=== PATIENT | male | born 1985 | race Caucasian/White ===

== ENCOUNTER 2017-01-26 10:04 | Emergency (ER) | payer SELFPAY ==
[2017-01-26 10:52] VITALS: BP 143/101
--- NOTE | 2017-01-26 13:19 | UC ---
Skin Complaint HPI - HPI Summary HPI Summary: SLEPT ON MATTRESS/COT THAT HAD BEEN KEPT OUTDOORS WITH ANIMALS ONE WEEK AGO AT FATHER'S HOUSE. DEVELOPED ITCHY SPREADING RASH AND RED WHELTS ON TORSO ARMS AND LEGS - History of Current Complaint Chief Complaint: UCSkin Time Seen by Provider: 01/26/17 11:11 Stated Complaint: RASH/BITES Hx Obtained From: Patient Onset/Duration: Gradual Onset, Lasting Days, Still Present Skin Exposure Onset/Duration: Weeks Ago Onset Severity: Moderate Current Severity: Moderate Pain Intensity: 0 Pain Scale Used: 0-10 Numeric Location: Diffuse Character: Pruritus Aggravating: Nothing Alleviating: Nothing Associated Signs & Symptoms: Positive: Rash. Negative: Nausea, Vomiting, Fever , Chills, Cough, Tenderness, Red Streaks Related History: Possible Reaction to: Insect, Possible Reaction to: Environmental Exposure - Allergy/Home Medications Allergies/Adverse Reactions: Allergies Allergy/AdvReac Type Severity Reaction Status Date / Time Acetaminophen [From Tylenol] Allergy throat Verified 12/03/14 10:56 swelling Review of Systems Constitutional: Negative Skin: Rash Eyes: Negative ENT: Negative Respiratory: Negative Cardiovascular: Negative Gastrointestinal: Negative Genitourinary: Negative Motor: Negative Neurovascular: Negative Musculoskeletal: Negative Neurological: Negative Psychological: Negative All Other Systems Reviewed And Are Negative: Yes PMH/Surg Hx/FS Hx/Imm Hx Previously Healthy: Yes - Surgical History Surgical History: None - Family History Known Family History: Negative: Blood Disorder - Social History Occupation: Unemployed Lives: With Family Alcohol Use: None Substance Use Type: None Smoking Status (MU): Heavy Every Day Tobacco Smoker Household Exposure Type: Cigarettes Physical Exam Triage Information Reviewed: Yes Appearance: Well-Appearing, No Pain Distress, Well-Nourished, Obese Vital Signs: Initial Vital Signs Temp 98.3 F 01/26/17 10:43 Pulse 94 01/26/17 10:43 Resp 16 01/26/17 10:43 BP 143/101 01/26/17 10:43 Pulse Ox 92 01/26/17 10:43 Vital Signs Reviewed: Yes Eye Exam: Normal ENT Exam: Normal ENT: Positive: Normal ENT inspection, Hearing grossly normal Dental Exam: Normal Neck exam: Normal Neck: Positive: Supple, Nontender, No Lymphadenopathy Respiratory Exam: Normal Respiratory: Positive: Chest non-tender, Lungs clear, Normal breath sounds, No respiratory distress Cardiovascular Exam: Normal Cardiovascular: Positive: RRR, No Murmur, Pulses Normal Abdominal Exam: Normal Musculoskeletal Exam: Normal Neurological Exam: Normal Psychological Exam: Normal Skin: Positive: rashes Course/Dx - Differential Diagnoses - Skin Complaint Differential Diagnoses: Cellulitis, Contact Dermatitis, Impetigo, Scabies, Systemic Illness, Tick Born Illness, Tinea, Viral Exanthem, Other - BUG BITE - Diagnoses Provider Diagnoses: SCABIES/FLEAS Discharge - Discharge Plan Condition: Stable Disposition: HOME Prescriptions: Permethrin 5% CREAM* 1 applic TOPICAL SEE INSTRUCTIONS #1 tube Patient Education Materials: Scabies (ED), Bed Bugs (ED) Forms: *Work Release Referrals: No Primary Care Phys,NOPCP [Primary Care Provider] -
== END 2017-01-26 11:30 | disposition home or self-care (01) ==
LOC: UCEAST 10:04
DX: B86 Scabies (principal); T14.8 Other injury of unspecified body region; F17.210 Nicotine dependence, cigarettes, uncomplicated
CPT/HCPCS: 99212; G0463

== ENCOUNTER 2017-02-14 15:38 | Emergency (ER) | payer SELFPAY ==
[2017-02-14 16:44] VITALS: BP 135/81
--- NOTE | 2017-02-14 17:57 | UC ---
Skin Complaint HPI - HPI Summary HPI Summary: Dx with scabies a couple of weeks ago---did not complete the second half of the treatment--and has continued itching worse at night--hand, groin , legs and arms - History of Current Complaint Chief Complaint: UCSkin Time Seen by Provider: 02/14/17 17:00 Stated Complaint: ITCHING SWELLING SKIN,BUG BITES Hx Obtained From: Patient Onset/Duration: Gradual Onset, Lasting Weeks, Still Present Skin Exposure Onset/Duration: Weeks Ago Timing: Constant Onset Severity: Mild Current Severity: Moderate Location: Diffuse Character: Redness Aggravating: Nothing Alleviating: Nothing Associated Signs & Symptoms: Positive: Negative Related History: Insect Bite/Sting - Allergy/Home Medications Allergies/Adverse Reactions: Allergies Allergy/AdvReac Type Severity Reaction Status Date / Time Acetaminophen [From Tylenol] Allergy throat Verified 02/14/17 16:46 swelling Review of Systems Constitutional: Negative Skin: Rash - itchy Eyes: Negative ENT: Negative Respiratory: Negative Cardiovascular: Negative Gastrointestinal: Negative Genitourinary: Negative Motor: Negative Neurovascular: Negative Musculoskeletal: Negative Neurological: Negative Psychological: Negative All Other Systems Reviewed And Are Negative: Yes PMH/Surg Hx/FS Hx/Imm Hx Previously Healthy: Yes - Surgical History Surgical History: None - Family History Known Family History: Positive: None Negative: Blood Disorder - Social History Occupation: Unemployed Lives: With Family Alcohol Use: Rare Substance Use Type: None Smoking Status (MU): Heavy Every Day Tobacco Smoker Have You Smoked in the Last Year: Yes Household Exposure Type: Cigarettes Physical Exam Triage Information Reviewed: Yes Appearance: Well-Appearing, No Pain Distress, Well-Nourished Vital Signs: Initial Vital Signs Temp 97.7 F 02/14/17 16:41 Pulse 97 02/14/17 16:41 Resp 18 02/14/17 16:41 BP 135/81 02/14/17 16:41 Pulse Ox 96 02/14/17 16:41 Vital Signs Reviewed: Yes Eye Exam: Normal Eyes: Positive: Conjunctiva Clear ENT Exam: Normal ENT: Positive: Normal ENT inspection, Hearing grossly normal, TMs normal. Negative: Nasal congestion, Nasal drainage, Trismus, Muffled/hoarse voice Dental Exam: Normal Neck exam: Normal Neck: Positive: Supple, Nontender Respiratory Exam: Normal Respiratory: Positive: Chest non-tender, Lungs clear, Normal breath sounds, No respiratory distress, No accessory muscle use Cardiovascular Exam: Normal Cardiovascular: Positive: RRR, No Murmur, Pulses Normal, Brisk Capillary Refill Musculoskeletal Exam: Normal Musculoskeletal: Positive: Strength Intact, ROM Intact, No Edema Neurological Exam: Normal Neurological: Positive: Alert, Muscle Tone Normal Psychological Exam: Normal Skin: Positive: Other - scattered scabbed areas from itching Course/Dx - Course Course Of Treatment: elimite then steroid cream follow with pcp wash all clothing and bedding - Differential Diagnoses - Skin Complaint Differential Diagnoses: Poison Maureen, Poison [place], Scabies, Tick Born Illness, Urticaria - Diagnoses Provider Diagnoses: scabies, nicotine dependent Discharge - Discharge Plan Condition: Stable Disposition: HOME Prescriptions: Permethrin 5% CREAM* 1 applic TOPICAL SEE INSTRUCTIONS #60 gm Triamcinolone 0.1% CREAM(NF) [Kenalog Cream 0.1%(NF)] 1 applic TOPICAL BID #60 tube Patient Education Materials: Scabies (ED), Bed Bugs (ED) Referrals: [facility] [Provider Group] - If Needed
== END 2017-02-14 18:11 | disposition home or self-care (01) ==
LOC: UCEAST 15:38
DX: B86 Scabies (principal); Z88.6 Allergy status to analgesic agent; F17.210 Nicotine dependence, cigarettes, uncomplicated
CPT/HCPCS: 99212; G0463

== ENCOUNTER 2017-12-11 15:32 | Emergency (ER) | payer SELFPAY ==
[2017-12-11 17:35] LABS: ABS Basophils 0.1 10^3/ul (0-0.2); ABS Eosinophils 0.5 10^3/ul (0-0.6); ABS Lymphocytes 1.4 10^3/ul (1.0-4.8); ABS Monocytes 1.3 10^3/ul (0-0.8); ABS Neutrophils 10.2 10^3/ul (1.5-7.7); ABS Nucleated RBC 0 10^3/ul; Eosinophil % 3.7 % (0-6); Hematocrit 55 % (42-52); Hemoglobin 18.5 g/dl (14.0-18.0); Lymphocyte % 10.1 % (25-47); Mean Corpuscular HGB Conc 34 g/dl (31-36); Mean Corpuscular Hemoglobin 29 pg (27-31); Mean Corpuscular Volume 87 fL (80-94); Mean Platelet Volume 8.3 um3 (7.4-10.4); Nucleated Red Blood Cells % 0.1; Platelet Count 384 10^3/ul (150-450); Red Cell Distribution Width 15 % (10.5-15); White Blood Count 13.5 10^3/ul (3.5-10.8)
[2017-12-11 17:38] LABS: Urine Appearance Clear; Urine Blood 1+ (Negative); Urine Color Amber; Urine Ketones 1+ (Negative); Urine Protein 1+(30 mg/dL) (Negative); Urine Specific Gravity 1.026 (1.010-1.030); Urine Urobilinogen Positive (Negative)
[2017-12-11 17:51] LABS: EGFR Non-African American 103.8 (>60)
--- NOTE | 2017-12-11 17:51 | RAD ---
INDICATION: Chest pain. COMPARISON: Comparison is made with a prior study from September 06, 2012 TECHNIQUE: Dual-energy PA and lateral views of the chest were obtained. FINDINGS: The heart is within normal limits in size. Mediastinal and hilar contours appear within normal limits. The lungs are clear. No pleural effusion is present. IMPRESSION: NO EVIDENCE FOR ACTIVE CARDIOPULMONARY DISEASE.
--- NOTE | 2017-12-11 19:51 | RAD ---
INDICATION: Right flank abdominal pain. COMPARISON: There are no prior studies available for comparison. TECHNIQUE: A CT scan of the abdomen and pelvis was performed without intravenous or oral contrast. Contiguous axial sections were obtained from the lung bases through the symphysis pubis. Images were reconstructed in the coronal and sagittal planes. FINDINGS: The lung bases are clear. No pleural effusion is present. The liver is mildly enlarged and decreased in attenuation consistent with fatty infiltration. There is a coarse calcification in the anterior portion of the right hepatic lobe measuring 1.3 cm in size. No other focal abnormalities are seen on this noncontrast study. No calcified gallstones are noted. The spleen is moderately enlarged without focal abnormality. The pancreas appears to be within normal limits. 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 The kidneys are normal in size. No renal calculi or hydronephrosis is seen. No ureteral or bladder calculi are noted. No bladder wall thickening or bladder calculi are seen. The adrenal glands appear to be within normal limits. The aorta is normal in caliber without significant calcific plaque. No significant enlarged retroperitoneal lymph nodes are seen. There is a small hiatal hernia. The stomach, small and large bowel appear nondistended. The appendix is within normal limits. There are scattered diverticuli throughout the colon which are moderate in degree in the descending and sigmoid colon. There is no evidence for diverticulitis or colitis. No free intraperitoneal air or fluid is seen. No significant focal osseous abnormality is seen. IMPRESSION: 1. NO RENAL CALCULI OR HYDRONEPHROSIS . 2. MALROTATION OF THE RIGHT KIDNEY LIKELY INCIDENTAL. IF THE PATIENT'S SYMPTOMS PERSIST CONSIDER CONTRAST-ENHANCED IMAGING. 3. HEPATOSPLENOMEGALY AND HEPATIC STEATOSIS.
[2017-12-11 20:25] VITALS: BP 130/71
--- NOTE | 2017-12-11 21:14 | ED ---
Hiral Lopez Elizabeth, scribed for Hamlet Sanchez MD on 12/11/17 at 1702 . GI/ HPI - HPI Summary HPI Summary: This patient is a 32 year old M presenting to [facility] with a chief complaint of right flank pain since 4-5 day ago. The patient rates the pain 8/10 in severity. Symptoms aggravated by coughing. Symptoms alleviated by nothing. Patient reports cough with yellow-green sputum. Patient denies pedal edema or fever. Pt has a hx of smoking. - History of Current Complaint Chief Complaint: EDFlankPain Time Seen by Provider: 12/11/17 16:30 Stated Complaint: BACK PAIN WHEN COUGHING Hx Obtained From: Patient Onset/Duration: Started Days Ago - 4-5 days ago Timing: Intermittent - severe when coughing Severity: Moderate Pain Intensity: 8 Location of Pain: Flank - right flank Associated Signs and Symptoms: Positive: Flank Pain, Cough, Other: - negative pedal edema. Negative: Fever Aggravating Factor(s): Coughing Alleviating Factor(s): Nothing - Allergy/Home Medications Allergies/Adverse Reactions: Allergies Allergy/AdvReac Type Severity Reaction Status Date / Time acetaminophen Allergy Mild Swelling Verified 12/11/17 17:24 PMH/Surg Hx/FS Hx/Imm Hx Endocrine/Hematology History: Denies: Hx Diabetes, Hx Thyroid Disease Cardiovascular History: Denies: Hx Hypertension - unknown Respiratory History: Reports: Hx Asthma Denies: Hx Chronic Obstructive Pulmonary Disease (COPD) GI History: Denies: Hx Ulcer Infectious Disease History: No Infectious Disease History: Reports: Hx Tuberculosis - TREATED 10 YRS AGO Denies: Hx Clostridium Difficile, Hx Hepatitis, Hx Human Immunodeficiency Virus (HIV), Hx of Known/Suspected MRSA, Hx Shingles, Hx Known/Suspected VRE, Hx Known/Suspected VRSA, History Other Infectious Disease, Traveled Outside the [place] in Last 30 Days - Family History Known Family History: Positive: None Negative: Blood Disorder - Social History Alcohol Use: Rare Substance Use Type: Reports: Marijuana Substance Use Comment - Amount & Last Used: occ Smoking Status (MU): Heavy Every Day Tobacco Smoker Have You Smoked in the Last Year: Yes Review of Systems Negative: Fever Positive: Cough Positive: flank pain - right flank pain Negative: Edema All Other Systems Reviewed And Are Negative: Yes Physical Exam - Summary Physical Exam Summary: Appearance: The patient is well-nourished in no acute distress and in no acute pain. Skin: The skin is warm and dry and skin color reflects adequate perfusion. HEENT: The head is normocephalic and atraumatic. The pupils are equal and reactive. The conjunctivae are clear and without drainage. Nares are patent and without drainage. Mouth reveals moist mucous membranes and the throat is without erythema and exudate. The external ears are intact. The ear canals are patent and without drainage. The tympanic membranes are intact. Neck: the neck is supple with full range of motion and non-tender. There are no carotid bruits. There is no neck vein distension. Respiratory: Chest is non-tender. Lungs are clear to auscultation and breath sounds are symmetrical and equal. Cardiovascular: Heart is regular rate and rhythm. There is no murmur or rub auscultated. There is no peripheral edema and pulses are symmetrical and equal. Abdomen: The abdomen is soft and non-tender. There are normal bowel sounds heard in all four quadrants and there is no organomegaly palpated. Musculoskeletal: There is no back tenderness noted. Extremities are non-tender with full range of motion. There is good capillary refill. There is no peripheral edema or calf tenderness elicited. Neurological: Patient is alert and oriented to person, place and time. The patient has symmetrical motor strength in all four extremities. Cranial nerves are grossly intact. Deep tendon reflexes are symmetrical and equal in all four extremities. Psychiatric: The patient has an appropriate affect and does not exhibit any anxiety or depression. Triage Information Reviewed: Yes Vital Signs On Initial Exam: Initial Vitals Temp Pulse Resp BP Pulse Ox 98.6 F 83 16 119/80 95 12/11/17 15:40 12/11/17 15:40 12/11/17 15:40 12/11/17 15:40 12/11/17 15:40 Vital Signs Reviewed: Yes Diagnostics - Vital Signs Vital Signs Temp Pulse Resp BP Pulse Ox 12/11/17 15:40 98.6 F 83 16 119/80 95 - Laboratory Lab Results: Lab Results 12/11/17 12/11/17 12/11/17 Range/Units 17:26 17:27 17:27 WBC 13.5 H (3.5-10.8) 10^3/ul RBC 6.30 H (4.0-5.4) 10^6/ul Hgb 18.5 H (14.0-18.0) g/dl Hct 55 H (42-52) % MCV 87 (80-94) fL MCH 29 (27-31) pg MCHC 34 (31-36) g/dl RDW 15 (10.5-15) % Plt Count 384 (150-450) 10^3/ul MPV 8.3 (7.4-10.4) um3 Neut % (Auto) 76.0 (38-83) % Lymph % (Auto) 10.1 L (25-47) % Cedar % (Auto) 9.6 H (0-7) % Eos % (Auto) 3.7 (0-6) % Baso % (Auto) 0.6 (0-2) % Absolute Neuts (auto) 10.2 H (1.5-7.7) 10^3/ul Absolute Lymphs (auto) 1.4 (1.0-4.8) 10^3/ul Absolute Monos (auto) 1.3 H (0-0.8) 10^3/ul Absolute Eos (auto) 0.5 (0-0.6) 10^3/ul Absolute Basos (auto) 0.1 (0-0.2) 10^3/ul Absolute Nucleated RBC 0 10^3/ul Nucleated RBC % 0.1 D-Dimer, Quantitative < 200 (Less Than 230) ng/mL Sodium (139-145) mmol/L Potassium (3.5-5.0) mmol/L Chloride (101-111) mmol/L Carbon Dioxide (22-32) mmol/L Anion Gap (2-11) mmol/L BUN (6-24) mg/dL Creatinine (0.67-1.17) mg/dL Est GFR ( Amer) (>60) Est GFR (Non-Af Amer) (>60) BUN/Creatinine Ratio (8-20) Glucose (70-100) mg/dL Calcium (8.6-10.3) mg/dL Total Bilirubin (0.2-1.0) mg/dL AST (13-39) U/L ALT (7-52) U/L Alkaline Phosphatase (34-104) U/L C-Reactive Protein (< 5.00) mg/L Total Protein (6.4-8.9) g/dL Albumin (3.2-5.2) g/dL Globulin (2-4) g/dL Albumin/Globulin Ratio (1-3) Urine Color Mi Urine Appearance Clear Urine pH 6.0 (5-9) Ur Specific [place] 1.026 (1.010-1.030) Urine Protein 1+(30 mg/dl) A (Negative) Urine Ketones 1+ A (Negative) Urine Blood 1+ A (Negative) Urine Nitrate Negative (Negative) Urine Bilirubin Negative (Negative) Urine Urobilinogen Positive A (Negative) Ur Leukocyte Esterase Negative (Negative) Urine WBC (Auto) Absent (Absent) Urine RBC (Auto) 1+(3-5/hpf) A (Absent) Urine Bacteria Absent (Absent) Urine Glucose Negative (Negative) 12/11/17 Range/Units 17:27 WBC (3.5-10.8) 10^3/ul RBC (4.0-5.4) 10^6/ul Hgb (14.0-18.0) g/dl Hct (42-52) % MCV (80-94) fL MCH (27-31) pg MCHC (31-36) g/dl RDW (10.5-15) % Plt Count (150-450) 10^3/ul MPV (7.4-10.4) um3 Neut % (Auto) (38-83) % Lymph % (Auto) (25-47) % Cedar % (Auto) (0-7) % Eos % (Auto) (0-6) % Baso % (Auto) (0-2) % Absolute Neuts (auto) (1.5-7.7) 10^3/ul Absolute Lymphs (auto) (1.0-4.8) 10^3/ul Absolute Monos (auto) (0-0.8) 10^3/ul Absolute Eos (auto) (0-0.6) 10^3/ul Absolute Basos (auto) (0-0.2) 10^3/ul Absolute Nucleated RBC 10^3/ul Nucleated RBC % D-Dimer, Quantitative (Less Than 230) ng/mL Sodium 135 L (139-145) mmol/L Potassium 4.3 (3.5-5.0) mmol/L Chloride 101 (101-111) mmol/L Carbon Dioxide 26 (22-32) mmol/L Anion Gap 8 (2-11) mmol/L BUN 10 (6-24) mg/dL Creatinine 0.85 (0.67-1.17) mg/dL Est GFR ( Amer) 133.5 (>60) Est GFR (Non-Af Amer) 103.8 (>60) BUN/Creatinine Ratio 11.8 (8-20) Glucose 82 (70-100) mg/dL Calcium 9.7 (8.6-10.3) mg/dL Total Bilirubin 1.30 H (0.2-1.0) mg/dL AST 16 (13-39) U/L ALT 19 (7-52) U/L Alkaline Phosphatase 72 (34-104) U/L C-Reactive Protein 30.52 H (< 5.00) mg/L Total Protein 7.6 (6.4-8.9) g/dL Albumin 4.5 (3.2-5.2) g/dL Globulin 3.1 (2-4) g/dL Albumin/Globulin Ratio 1.5 (1-3) Urine Color Urine Appearance Urine pH (5-9) Ur Specific [place] (1.010-1.030) Urine Protein (Negative) Urine Ketones (Negative) Urine Blood (Negative) Urine Nitrate (Negative) Urine Bilirubin (Negative) Urine Urobilinogen (Negative) Ur Leukocyte Esterase (Negative) Urine WBC (Auto) (Absent) Urine RBC (Auto) (Absent) Urine Bacteria (Absent) Urine Glucose (Negative) Result Diagrams: 12/11/17 17:27 12/11/17 17:27 Lab Statement: Any lab studies that have been ordered have been reviewed, and results considered in the medical decision making process. - Radiology CXR Xray Interpretation: No Acute Changes - IMPRESSION: NO EVIDENCE FOR ACTIVE CARDIOPULMONARY DISEASE. Dr. Sanchez has reviewed this report. Radiology Interpretation Completed By: Radiologist - CT Abd/Pelvis CT CT Interpretation: Positive (See Comments) - IMPRESSION: 1. NO RENAL CALCULI OR HYDRONEPHROSIS . 2. MALROTATION OF THE RIGHT KIDNEY LIKELY INCIDENTAL. IF THE PATIENT'S SYMPTOMS PERSIST CONSIDER CONTRAST-ENHANCED IMAGING. 3. HEPATOSPLENOMEGALY AND HEPATIC STEATOSIS. Dr. Sanchez has reviewed this report. CT Interpretation Completed By: Radiologist Re-Evaluation - Re-Evaluation 1st re-eval Re-Evaluation Time: 20:00 Change: Unchanged Comment: discussed imaging and lab results with pt. Discussed course of treatment. GIGU Course/Dx - Course Course Of Treatment: Mr. Ayon presents with a right flank pain when he coughs and he has been suffering a productive cough for a couple weeks. His W/ U here was negative aside from a nonspecific, slight leukocytosis and a small microscopic hematuria. i will treat his cough and get him close F/U. - Diagnoses Provider Diagnoses: Chest pain Discharge - Sign-Out/Discharge Documenting (check all that apply): Discharge/Admit/Transfer - Discharge Plan Condition: Stable Disposition: HOME Prescriptions: traMADol TAB* [Ultram*] 50 mg PO Q6HR PRN #20 tab MDD 4 PRN Reason: Pain Patient Education Materials: Chest Pain (ED) Referrals: [facility] [place] [facility] [[place]] - 2 Days Additional Instructions: Follow up with primary care physician in 2-3 days. Return to the emergency department with any new or worsening symptoms. - Billing Disposition and Condition Condition: STABLE Disposition: HOME The documentation as recorded by the Hiral green Elizabeth accurately reflects the service I personally performed and the decisions made by me, Hamlet Sanchez MD.
== END 2017-12-11 20:24 | disposition home or self-care (01) ==
LOC: ED 15:32
DX: R07.9 Chest pain, unspecified (principal); R10.9 Unspecified abdominal pain; F17.210 Nicotine dependence, cigarettes, uncomplicated
CPT/HCPCS: 36415; 71046; 74176; 80053; 81003; 81015; 85025; 85379; 86140; 99283

== ENCOUNTER 2019-01-30 21:40 | Emergency (ER) | payer SELFPAY ==
[2019-01-30] MEDS ORDERED: predniSONE TAB* 20 MG PO ONE (23:43)
[2019-01-30] MEDS ORDERED: diPHENhydraMINE PO* 50 MG PO ONE (23:43)
[2019-01-30] MEDS ORDERED: Famotidine TAB* 20 MG PO ONE (23:43)
--- NOTE | 2019-01-31 01:08 | ED ---
Allergic Reaction/Systemic - History of Current Complaint Chief Complaint: EDRashSkinAbscess Time Seen by Provider: 01/30/19 23:30 Pain Intensity: 8 - Allergies/Home Medications Allergies/Adverse Reactions: Allergies Allergy/AdvReac Type Severity Reaction Status Date / Time acetaminophen Allergy Mild Swelling Verified 12/11/17 17:24 PMH/Surg Hx/FS Hx/Imm Hx Endocrine/Hematology History: Denies: Hx Diabetes, Hx Thyroid Disease Cardiovascular History: Denies: Hx Hypertension - unknown Respiratory History: Reports: Hx Asthma Denies: Hx Chronic Obstructive Pulmonary Disease (COPD) GI History: Denies: Hx Ulcer Infectious Disease History: No Infectious Disease History: Reports: Hx Tuberculosis - TREATED 10 YRS AGO Denies: Hx Clostridium Difficile, Hx Hepatitis, Hx Human Immunodeficiency Virus (HIV), Hx of Known/Suspected MRSA, Hx Shingles, Hx Known/Suspected VRE, Hx Known/Suspected VRSA, History Other Infectious Disease, Traveled Outside the [place] in Last 30 Days - Family History Known Family History: Positive: None Negative: Blood Disorder - Social History Alcohol Use: Rare Substance Use Type: Reports: Marijuana Substance Use Comment - Amount & Last Used: occ Smoking Status (MU): Heavy Every Day Tobacco Smoker Have You Smoked in the Last Year: Yes Physical Exam Vital Signs On Initial Exam: Initial Vitals Temp Pulse Resp BP Pulse Ox 99 F 100 20 123/92 95 01/30/19 21:46 01/30/19 21:46 01/30/19 21:46 01/30/19 21:46 01/30/19 21:46 Diagnostics - Vital Signs Vital Signs Temp Pulse Resp BP Pulse Ox 01/30/19 21:46 99 F 100 20 123/92 95 - Laboratory Lab Statement: Any lab studies that have been ordered have been reviewed, and results considered in the medical decision making process. Allergic Reaction Course/Dx - Diagnoses Provider Diagnoses: Insect bite, Allergic reaction Discharge - Sign-Out/Discharge Documenting (check all that apply): Patient Departure Patient Received Moderate/Deep Sedation with Procedure: No - Discharge Plan Condition: Stable Disposition: HOME Patient Education Materials: Insect Bite or Sting (ED), General Allergic Reaction (ED) Referrals: No Primary Care Phys,NOPCP [Primary Care Provider] - Additional Instructions: Take Benadryl 50 mg every 6 hours for itching and redness due to bug bites. Follow-up with primary care. Return to the ED for any new or worsening symptoms. - Billing Disposition and Condition Condition: STABLE Disposition: Home
[2019-01-31 01:39] VITALS: BP 134/78
== END 2019-01-31 01:37 | disposition home or self-care (01) ==
LOC: ED 21:40
DX: S40.861A Insect bite (nonvenomous) of right upper arm, initial encounter (principal); W57.XXXA Bitten or stung by nonvenomous insect and other nonvenomous arthropods, initial encounter; Y92.9 Unspecified place or not applicable; T78.40XA Allergy, unspecified, initial encounter
CPT/HCPCS: 99282; A9270-GY; J7512